=== PATIENT | male | born 1975 | race Caucasian/White ===

== ENCOUNTER → 2018-01-28 | Outpatient (CLI) | payer OTHER ==
[~2018-01-28] MED LIST: VITAMIN E400 UNIT PO
[2018-01-28 10:03] LABS: ABSOLUTE BASOPHILS 0.1 thou/uL (0.0-0.2); ABSOLUTE EOSINOPHILS 0.1 thou/uL (0.0-0.7); ABSOLUTE LYMPHOCYTES 1.8 thou/uL (0.8-5.3); ABSOLUTE MONOCYTES 0.4 thou/uL (0.0-1.2); ABSOLUTE NEUTROPHILS 2.4 thou/uL (1.6-8.1); BASOPHILS 1.3 %; EOSINOPHILS 2.2 %; HEMOGLOBIN 15.9 gm/dL (14.0-18.0); LYMPHOCYTES 37.8 %; MCH 29.2 pg (26.0-34.0); MCHC 34.5 g/dL (28.0-37.0); MCV 84.7 fL (80.0-100.0); MONOCYTES 7.7 %; MPV 8.1 fl. (7.2-11.1); NUCLEATED RBCS 0 /100WBC; PLATELET COUNT* 260 thou/uL (150-400); RBC 5.43 mil/uL (4.50-6.00); RDW-CV 12.8 % (10.5-14.5); WBC 4.7 thou/uL (4.0-11.0)
[2018-01-28 10:22] LABS: ALBUMIN 4.1 g/dL (3.4-5.0); CALCIUM 9.2 mg/dL (8.5-10.1); CREATININE 0.9 mg/dL (0.6-1.3); POTASSIUM 4.2 mmol/L (3.5-5.1); TOTAL BILIRUBIN 0.7 mg/dL (<0.1-1.0); TOTAL PROTEIN 7.6 g/dL (6.4-8.2)
== END ==
LOC: M.ULTRA 09:16
PROVIDERS: Internal Medicine Gastroenterology
DX: R16.0 Hepatomegaly, not elsewhere classified (principal); K82.9 Disease of gallbladder, unspecified; R79.89 Other specified abnormal findings of blood chemistry; Z87.19 Personal history of other diseases of the digestive system

== ENCOUNTER → 2018-02-17 | Outpatient (CLI) | payer OTHER | LOC: M.CT 07:58 | DX: K76.0 Fatty (change of) liver, not elsewhere classified (principal); R10.11 Right upper quadrant pain ==

== ENCOUNTER → 2021-01-26 | Day surgery (SDC) | payer OTHER ==
[~2021-01-26] MED LIST changes: +HYDROCHLOROTHIA25 M1 PO; +SUPER THERAVIT1 EACH PO
--- NOTE | ~2021-01-26 | OP ---
[facility] [address] [place] [address] OPERATIVE REPORT Name: PEGGY BAER Room: [facility].#: [id number] Admission: 01/26/21 Attend Phys: Misael Cary Discharge: Date of : 77 Report #: [id number] THIS REPORT FOR: cc: Fabricio Cassidy MD, Matthew D MD Patterson,Misael Fernandez MD ~ DATE OF SURGERY: 01/26/2021 PREOPERATIVE DIAGNOSIS: Left posterior neck lymphadenopathy. POSTOPERATIVE DIAGNOSIS: Left posterior neck lymphadenopathy. OPERATION: Excision of left posterior cervical lymph node. SURGEON: Misael Cary MD ANESTHESIA: General. ESTIMATED BLOOD LOSS: Minimal. SPECIMEN: Left posterior neck lymph node. DESCRIPTION OF PROCEDURE: After informed consent was obtained, the patient was brought to the operating room and placed supine. SCDs were placed and working, preoperative antibiotics were administered, general anesthesia was induced. The patient was placed in the right lateral decubitus position with an axillary roll and the neck was prepped and draped in the usual sterile fashion with Betadine. Area was then instilled with 0.5% Marcaine solution, 2 mL. A 2 cm incision was made. Cautery dissection was made down through the subcutaneous tissue. This was a deep lymph node. I was able to palpate it. It was dissected around using cautery. The pedicle was ligated using a 3-0 Vicryl suture. The lymph node was then sent off as specimen with small piece for cytology. The deep layer was closed with 3-0 Vicryl suture. The skin was closed with 4-0 Monocryl. Incisions were dressed with Steri-Strips. COMPLICATIONS: None. DISPOSITION: The patient was taken to recovery in satisfactory condition. By: [id number] Cary MD /nt
[2021-01-26 09:18] LABS: HEMATOCRIT 44.9 % (42.0-52.0); HEMOGLOBIN 15.4 gm/dL (14.0-18.0); MCH 28.9 pg (26.0-34.0); MCHC 34.3 g/dL (28.0-37.0); MCV 84.3 fL (80.0-100.0); MPV 8.2 fl. (7.2-11.1); RBC 5.33 mil/uL (4.50-6.00); RDW-CV 12.6 % (10.5-14.5); WBC 5.5 thou/uL (4.0-11.0)
[2021-01-26 09:27] LABS: CALCIUM 9.2 mg/dL (8.5-10.1); CREATININE 0.9 mg/dL (0.6-1.3); POTASSIUM 4.3 mmol/L (3.5-5.1)
--- NOTE | 2021-01-26 11:25 | EKG ---
[place] [address] ELECTROCARDIOGRAM REPORT Name: KEYURPEGGYAM Room: [facility]#: [id number] Admission: 01/26/21 Attend Phys: Misael Panchal Discharge: Date of : 77 Date of Service: 01/26/21924 Report #: [id number] THIS REPORT FOR: //name// [facility] Test Date: 2021-01-26 Test Time: 09:25:22 Pat Name: PEGGY BAER Department: Room: Gender: Planning Management It Specialist: [facility] : 1975 Requested By: Gennaro Sellers Order Number: [id number] Jeremy MD: Tucker Gonzalez Measurements Intervals [place] Rate: 71 P: 16 MS: 180 QRS: 5 QRSD: 75 T: 42 QT: 397 QTc: 432 Interpretive Statements Sinus rhythm No previous ECG available for comparison Electronically Signed On 01-26-2021 11:25:06 CDT by Tucker Gonzalez [email or web address] <ELECTRONICALLY SIGNED> By: Tucker Gonzalez MD, [facility] 01/26/21 1125 4 4 Tucker Gonzalez MD, FACC /EPI
--- NOTE | 2021-01-31 18:06 | PATH ---
[address] [address] PATHOLOGY RPT PROCEDURE Name: PEGGY DIA Room: [facility].#: [id number] Admission: 01/26/21 Date of : 77 Discharge: Report #: [id number] Path Case #: [id number] [facility] Accession Number: [id number] . 01 Material submitted: . neck - LEFT POSTERIOR NECK LYMPH NODE. Modifiers: left, posterior . 01 Clinical history: . EXCISION LYMPH NODE ENLARGED LYMPH NODE . 02 Diagnosis: Lymph node, left posterior, biopsy: - Benign reactive lymph node (see comment). (SCA:laquita; 01/31/2021) . . Special studies report received from [facility], [address] [place] [address], [address], [place], [address], on case [id number], labeled with their number [id number], dated 01/30/2021. . Flow Cytometry: Hematologic Neoplasia Assessment . Clinical History Enlarged lymph node . Indication For Study Evaluation for lymphadenopathy . Specimen Lymph Node, Left Posterior Neck . Viability 87% (7AAD exclusion) . Interpretation Lymph Node, Left Posterior Neck: No significant lymphoid immunophenotypic abnormalities detected . Comments Hodgkin lymphoma, some large cell lymphomas and some peripheral T-cell lymphomas cannot be categorically excluded by flow cytometric analysis. Correlation with the morphologic findings is recommended. . Populations Analyzed Lymphocytes: 86% B-cells: 24.0%, polytypic/polyclonal sIg light chain pattern T-cells: no significant abnormalities [place] [address] PATHOLOGY RPT PROCEDURE Name: PEGGY DIA Room: [facility]#: [id number] Admission: 01/26/21 Date of : 77 Discharge: Report #: [id number] Path Case #: [id number] CD4:CD8: 10.6, slightly increased (nonspecific finding) NK cells: 1.2% Granulocytes: 1% Present CD45 Negative 12% No significant reactivity with the markers tested Events/Debris: (may represent non-hematolymphoid cells, degenerated cells, debris, unlysed red blood cells, etc.) . Morphologic Evaluation A slide was reviewed for software quality specialist purposes only. . Specimen Description Total Cell Yield: 3.48 X 10 and 6 . Reagent(s) Used CD2, CD3, CD4, CD5, CD7, CD8, CD10, CD11b, CD19, CD20, CD23, CD30, CD38, CD43, CD45, CD56, CD57, FMC-7, HLA-DR, kappa, lambda . at [employer] Maritza De León MD Hematopathologist . Intended Use Flow cytometry is optimally used to immunophenotypically characterize abnormal populations when they are detected. Negative flow cytometry results do not exclude lymphoma or neoplasia. Possible false negative flow cytometry results may occur in, but are not limited to, the following: neoplastic cells in Hodgkin lymphoma are not typically adequately represented by routine clinical flow cytometry; neoplastic cells may be lost or inadequately represented due to degeneration, sample processing, sampling artifact, or patchy involvement; plasma cells are typically underrepresented by flow cytometry; immature cells/blasts may be underrepresented due to hemodilution; myeloproliferative disorders and low grade myelodysplasia may not have immunophenotypic abnormalities or increased blasts. Correlation with all available clinical, laboratory, and morphologic data is always necessary to assess for the possibility of false negative flow cytometry results and to establish a diagnosis. Each marker in this analysis was used to assess for potential antigenic abnormalities or to evaluate detected abnormalities. . Any image or images that accompany this report are ambulatory service representative images only and should not be used to render a diagnosis. . Disclaimer(s) This test was developed and its performance characteristics determined by [employer] It has not been cleared or approved by the Food [place] [address] PATHOLOGY RPT PROCEDURE Name: PEGGY DIA Room: [facility].#: [id number] Admission: 01/26/21 Date of : 77 Discharge: Report #: [id number] Path Case #: [id number] [place]forming Labs [facility] [place] a business unit of [employer] a wholly-owned subsidiary of [employer]. . This test was performed at [facility]. at [address], [place], [address] - Nursing Manager: Nahun Doran MD. . For inquiries, the physician may contact Lab: [phone] . A complete copy of the report is on file. . Professional services performed by [employer] at [address], [place] [address]. Technical services performed by [employer]. at [address], [place] [address]. . (SCA:amj 01/30/2021) . [facility] 01/31/2021 1248 Local . 02 Comment: Flow cytometric [place] [facility] [place] [id number]) revealed no significant lymphoid immunophenotypic abnormalities detected supporting the above diagnosis. (SCA:laquita; 01/31/2021) . 02 Electronically signed: . Yoav Montilla DO, Pathologist NPI- [id number] . 01 Gross description: . Received in formalin labeled "Peggy Dia L posterior lymph node neck" is a tanner-brown fragment of possible lymphoid tissue measuring 0.8 x 0.6 x 0.6 cm. The specimen is serially sectioned and submitted entirely in cassettes A1-A2. ([facility] [place]; 01/27/2021) SY/[facility] 01/27/2021 0817 Local . 02 Pathologist provided ICD-10: R59.9 . 02 CPT . 138722 Specimen Comment: A courtesy copy of this report has been sent to [phone], [phone] Specimen Comment: [phone] Specimen Comment: Report sent to ,DR DEL REAL [address] [address] PATHOLOGY RPT PROCEDURE Name: PEGGY DIA Room: [facility]..#: [id number] Admission: 01/26/21 Date of : 77 Discharge: Report #: [id number] Path Case #: [id number] [facility]formed at: [facility] [address] [id number] MD Anival Savage MD Phone: [phone] Performed at: 02 [facility] [address] [id number] MD Salvador Telles MD Phone: [phone]
== END | disposition home or self-care (01) ==
LOC: M.SUR 06:42
PROVIDERS: Anesthesiology; ATTEND Surgery
DX: R59.0 Localized enlarged lymph nodes (principal); Z98.890 Other specified postprocedural states; Z79.899 Other long term (current) drug therapy; Z20.822 Contact with and (suspected) exposure to COVID-19; Z88.8 Allergy status to other drugs, medicaments and biological substances